=== PATIENT | female | born 1995 | race Caucasian/White ===

== ENCOUNTER 2017-05-31 06:24 | Inpatient (IN) | payer OTHER ==
[~2017-05-31] VITALS: Ht 157.5 cm; Wt 72.0 kg
[~2017-05-31 06:24] MED LIST: ACYCLOVIR200 MG PO; AMBIEN5 MG PO; AMITRIPTYLINE H25 MG PO; AMOXICILLIN500 MG PO; PRENATABS RX T1 EACH PO; ZOVIRAX400 MG PO
--- NOTE | 2017-05-31 13:46 | PR ---
[facility] [address] [place] [place] [address] Signed Progress Notes IP Datetime Report Generated by CPN: 05/31/2017 13:46 PROGRESS NOTES: [id number] Impression: Normal progression of labor Procedures: Sterile Vag Exam Plan: Anticipate Vaginal Delivery Informed Consent Obtain: Vaginal Delivery VITAL SIGNS: [id number] Vital Signs: Reviewed; Within Normal Limits EXAM: [id number] Dilatation: 10.0 Effacement: 100 Station: -2 Uterine Contractions: every one to two minutes MEMBRANES: [id number] Membrane Status: Ruptured Amniotic Fluid Color: Clear ROM Note: amniotomy clear and moderate amount of fluid Comments: patient comfortable with epidural in place but feeling pressure Fetus A: [id number] FHR Baseline: 120's Variability: Moderate 6-25bpm Accelerations: 15X15 Decelerations: None FHR Category: Category I Presentation: Vertex Comments on Fetus A: reactive Fetus B: [id number] Signing Physician: Ping Weston MD CC: *Electronically Signed* 05/31/17 1346 PING WESTON MD PATIENT NAME: JEFFRY VICK PROGRESS NOTE DATE OF : [birth year] PHYSICIAN: PING WESTON MD RPT #: [id number] REPORT IS CONFIDENTIAL AND NOT TO BE RELEASED WITHOUT AUTHORIZATION
--- NOTE | 2017-06-01 09:06 | PR ---
[facility] [address] [place], [place] [address] Signed PP Progress Notes Datetime Report Generated by CPN: 06/01/2017 09:06 SUBJECTIVE: [id number] Pain: Within normal limits Nausea/Vomiting: Denies Flatus: Yes Bowel Movement: No Vital Signs: [id number] Vital Signs: Reviewed; Within Normal Limits EXAM: [id number] Cardiovascular: Normal Respiratory: Normal Abdomen/Uterus: Normal Lochia: Normal Vulva/Perineum: Normal Breasts: Normal CVA Tenderness: Normal Extremities: Normal Incision: Not Applicable Progress: Normal IMPRESSION/PLAN/PROCEDURES: [id number] Impression: Normal progression Plan: Discharge Procedures: None; Rubella Progress Notes: patient doing well. wanting to go home. needs rubella Signing Physician: Ping Weston MD CC: *Electronically Signed* 06/01/17905 PING WESTON MD PATIENT NAME: JEFFRY VICK PROGRESS NOTE DATE OF : 97 PHYSICIAN: PING WESTON MD RPT #: [id number] REPORT IS CONFIDENTIAL AND NOT TO BE RELEASED WITHOUT AUTHORIZATION
== END 2017-06-01 15:05 | disposition home or self-care (01) | DRG 775 ==
LOC: FBCO 06:24 → FBC 06:59
PROVIDERS: ADMIT Obstetrics & Gynecology
PROC: 10E0XZZ Delivery of Products of Conception, External Approach (ICD-10-PCS; principal; 2017-05-31)
PROC: 10907ZC Drainage of Amniotic Fluid, Therapeutic from Products of Conception, Via Natural or Artificial Opening (ICD-10-PCS; 2017-05-31)
PROC: 00HU33Z Insertion of Infusion Device into Spinal Canal, Percutaneous Approach (ICD-10-PCS; 2017-05-31)
PROC: 3E0R3CZ (ICD-10-PCS; 2017-05-31)
DX: O69.3XX0 Labor and delivery complicated by short cord, not applicable or unspecified (principal); O69.82X0 Labor and delivery complicated by other cord entanglement, without compression, not applicable or unspecified; Z3A.39 39 weeks gestation of pregnancy; Z37.0 Single live birth
CPT/HCPCS: 01960; 36415; 85027; J2590; J3010; J7120